=== PATIENT | male | born 1950 | race Caucasian/White ===

== ENCOUNTER 2018-10-09 10:23 | Emergency (ER) | payer OTHER ==
[~2018-10-09] VITALS: Ht 182.9 cm; Wt 83.9 kg
[2018-10-09] MEDS ORDERED: HYDROCODONE/APAP 7.5MG-325MG 1 EA TAB PO PRN (10:30)
[2018-10-09] MEDS ORDERED: LIDOCAINE 1% W/EPINEPHRINE 20 ML VIAL INJ ONE (10:30)
[2018-10-09 10:59] LABS: BASOPHILS # (AUTO) 0.1 (0.0-0.1); BASOPHILS % 0.4 % (0.0-1.0); EOSINOPHILS # (AUTO) 0.2 (0.0-0.4); EOSINOPHILS % 1.7 % (0.0-6.0); HEMATOCRIT 26.5 % (38.2-49.6); HEMOGLOBIN 8.4 g/dL (14.0-18.0); LYMPHOCYTES # (AUTO) 1.1 (1.0-3.2); LYMPHOCYTES % 8.8 % (18.0-39.1); MEAN CORPUSCULAR HEMOGLOBIN 28.5 pg (28-32); MEAN CORPUSCULAR HGB CONC 31.7 g/dL (31-35); MEAN CORPUSCULAR VOLUME 89.8 fL (81-99); MONOCYTES % 8.3 % (4.4-11.3); NEUTROPHILS # (AUTO) 9.9 (2.1-6.9); NEUTROPHILS % 80.2 % (38.7-80.0); PLATELET COUNT 539 x10e3/uL (140-360); RED BLOOD COUNT 2.95 x10e6/uL (4.3-5.7); RED CELL DISTRIBUTION WIDTH 13.3 % (11.7-14.4)
[2018-10-09 11:19] LABS: ALBUMIN 3.4 g/dL (3.5-5.0); ALBUMIN/GLOBULIN RATIO 0.8 (0.8-2.0); ANION GAP 16.6 mmol/L (8-16); CALCIUM 10.2 mg/dL (8.4-10.2); CREATININE, SERUM 1.84 mg/dL (0.72-1.25); POTASSIUM 4.6 mmol/L (3.5-5.1)
[2018-10-09] MEDS ORDERED: SODIUM CHLORIDE 0.9% 500ML 500 ML IV ONE (11:45)
[2018-10-09] MEDS ORDERED: ONDANSETRON HCL INJ 2MG/ML 2ML 2 MG/ML VIAL IV STA (12:23)
[2018-10-09] MEDS ORDERED: MORPHINE SULFATE INJ 4 MG/ML INJ 1ML IV PRN (12:30)
--- NOTE | 2018-10-09 13:57 | Diagnostic Imaging Report ---
EXAMINATION: CT of the neck with contrast HISTORY: Left jaw pain, abscess, history of cancer COMPARISON: None TECHNIQUE: Multidetector helical axial images were obtained from the sternal notch through the skull base during intravenous infusion of iodinated contrast material. Images were reconstructed using soft tissue and bone algorithms and were viewed in multiplanar format. Intravenous contrast: 100 mL of Isovue-370. Dose modulation, iterative reconstruction, and/or weight based adjustment of the mA/kV was utilized to reduce the radiation dose to as low as reasonably achievable. FINDINGS: Mass: Approximately 1.2 x 2.3 x 1.8 cm (L x AP x T) peripherally enhancing masslike fluid collection in the left para median submental region, underneath the level of the symphysis and left parasymphyseal region ( this may represent an abscess or an infected mass, comparison to prior studies if available is advised), without definite underlying osseous or overlying skin abnormalities, mild associated swelling of the overlying soft tissues which may be related to cellulitis. Nodes: No discrete enlarged cervical lymphadenopathy Sinuses: Imaged portions unremarkable. Oral cavity: No mass. Edentulous patient. Salivary glands: Prominent atrophy of the parotid and submandibular glands, likely from prior cancer treatment as there is also diffuse reticulation of the subcutaneous fat along the anterior neck. Surgical clips along the left lateral neck from possible prior dissection. Pharynx: Mild diffuse swelling of the lining mucosa, likely posttreatment change. Larynx: Unremarkable. Thyroid gland: Unremarkable. Upper esophagus: No abnormalities Blood vessels: Atherosclerotic changes throughout the bilateral common carotids, carotid bifurcations, carotid bulbs and cervical ICAs as well as partially visualized intracranial ICAs. Bones: -Prominent irregularity and fragmentation of the right body/ramus of the mandible which may be related to radiation-induced necrosis or osteomyelitis, no discrete associated mass or fluid collection is seen at this time. -Prominent degenerative changes of the atlantoaxial joint. Moderate foraminal stenosis mainly on the right at C2-C3, moderately severe bilaterally at C3-C4, C4-C5, C5-C6 and C6-7 due to spondylolisthesis and uncovertebral arthrosis. IMPRESSION: 1. Ill-defined peripheral enhancing masslike fluid collection in the left central submental region, likely an abscess as above. Comparison to prior studies is recommended. 2. 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 3. No enlarged cervical lymphadenopathy. 4. Posttreatment changes throughout the soft tissues of the neck. Signed by: Dr. Gertrudis Rioc M.D. on 10/09/2018 1:54 PM
[2018-10-09] MEDS ORDERED: MORPHINE SULFATE INJ 4 MG/ML INJ 1ML IV STA (14:33)
[2018-10-09] MEDS ORDERED: CLINDAMYCIN PHOS 900MG/ 50ML 50 ML IV ONE (14:45)
[2018-10-09 15:26] VITALS: BP 151/78
[2018-10-09] MEDS ORDERED: IOPAMIDOL 370 MG/ML 200 ML INFUS..BTL INJ ONE (18:56)
[2018-10-09] MEDS ORDERED: SODIUM CHLORIDE 0.9% 50ML 50 ML ONE (18:56)
== END 2018-10-09 15:34 | disposition home or self-care (01) ==
LOC: ER 10:23
DX: R68.84 Jaw pain (principal); K04.7 Periapical abscess without sinus; I10 Essential (primary) hypertension
CPT/HCPCS: 36415; 41800; 70491; 80053; 85025; 99284; J2270; J2405; J7040; Q9967

== ENCOUNTER 2019-04-07 07:42 | Emergency (ER) | payer OTHER ==
[~2019-04-07] VITALS: Ht 182.9 cm; Wt 83.9 kg
--- OUTSIDE RECORDS SUMMARY | 2019-04-07 07:46 | XMS REPORT ---
Author Author [facility] Address Unknown Phone Unavailable Care Team Providers Care Information Security Architect Name Role Phone ANETAAMY Raven SHAYY Unavailable Unavailable Problems This patient has no known problems. Allergies, Adverse Reactions, Alerts This patient has no known allergies or adverse reactions. Medications This patient has no known medications. Results Test Description Test Time Test Comments Text Results Atomic Results Result Comments CT SOFT TISSUE NECK W 2018-10-09 13:40:00 [place] [address] Patient Name: JUANA RODRIGUEZ MR #: [id number] : 1950 Age/Sex: 67/M Req #: [id number] Adm Physician: Ordered by: MATTIE PEARSON TERRA COTTA MASON Report #: [id number] Location: ER Room/Bed: Procedure: [id number] CT/CT SOFT TISSUE NECK W Exam Date: 10/09/18 Exam Time: 1300 REPORT STATUS: Signed EXAMINATION: CT of the neck with contrast HISTORY: Left jaw pain, abscess, history of cancer COMPARISON: None TECHNIQUE: Multidetector helical axial images were obtained from the sternal notch through the skull base during intravenous infusion of iodinated contrast material. Images were reconstructed using soft tissue and bone algorithms and were viewed in multiplanar format. Intravenous contrast: 100 mL of Isovue- 370. Dose modulation, iterative reconstruction, and/or weight based adjustment of the mA/kV was utilized to reduce the radiation dose to as low as reasonably achievable. FINDINGS: Mass: Approximately 1.2 x 2.3 x 1.8 cm (L x AP x T) peripherally enhancing masslike fluid collection in the left para median submental region, underneath the level of the symphysis and left parasymphyseal region ( this may represent an abscess or an infected mass, comparison to prior studies if available is advised), without definite underlying osseous or overlying skin abnormalities, mild associated swelling of the overlying soft tissues which may be related to cellulitis. Nodes: No discrete enlarged cervical lymphadenopathy Sinuses: Imaged portions unremarkable. Oral cavity: No mass. Edentulous patient. Salivary glands: Prominent atrophy of the parotid and submandibular glands, likely from prior cancer treatment as there is also diffuse reticulation of the subcutaneous fat along the anterior neck. Surgical clips along the left lateral neck from possible prior dissection. Pharynx: Mild diffuse swelling of the lining mucosa, likely posttreatment change. Larynx: Unremarkable. Thyroid gland: Unremarkable. Upper esophagus: No abnormalities Blood vessels: Atherosclerotic changes throughout the bilateral common carotids, carotid bifurcations, carotid bulbs and cervical ICAs as well as partially visualized intracranial ICAs. Bones: -Prominent irregularity and fragmentation of the right body/ramus of the mandible which may be related to radiation-induced necrosis or osteomyelitis, no discrete associated mass or fluid collection is seen at this time. -Prominent degenerative changes of the atlantoaxial joint. Moderate foraminal stenosis mainly on the right at C2-C3, moderately severe bilaterally at C3-C4, C4-C5, C5-C6 and C6-7 due to spondylolisthesis and uncovertebral arthrosis. IMPRESSION: 1. Ill-defined peripheral enhancing masslike fluid collection in the left central submental region, likely an abscess as above. Comparison to prior studies is recommended. 2. 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 3. No enlarged cervical lymphadenopathy. 4. Posttreatment changes throughout the soft tissues of the neck. Signed by: Dr. Gertrudis Rico M.D. on 10/09/2018 1:54 PM Dictated By: GERTRUDIS RICO MD [id number] Transcribed By: KAREEM on 10/09/18 [id number] COPY TO: MATTIE PEARSON NP
[2019-04-07 08:10] LABS: BASOPHILS # (AUTO) 0.1 (0.0-0.1); BASOPHILS % 0.9 % (0.0-1.0); EOSINOPHILS # (AUTO) 0.3 (0.0-0.4); EOSINOPHILS % 3.1 % (0.0-6.0); HEMATOCRIT 28.2 % (38.2-49.6); HEMOGLOBIN 8.9 g/dL (14.0-18.0); LYMPHOCYTES # (AUTO) 0.9 (1.0-3.2); LYMPHOCYTES % 10.7 % (18.0-39.1); MEAN CORPUSCULAR HEMOGLOBIN 28.9 pg (28-32); MEAN CORPUSCULAR HGB CONC 31.6 g/dL (31-35); MEAN CORPUSCULAR VOLUME 91.6 fL (81-99); MONOCYTES # (AUTO) 0.7 (0.2-0.8); MONOCYTES % 7.6 % (4.4-11.3); NEUTROPHILS # (AUTO) 6.8 (2.1-6.9); NEUTROPHILS % 77.1 % (38.7-80.0); PLATELET COUNT 314 x10e3/uL (140-360); RED BLOOD COUNT 3.08 x10e6/uL (4.3-5.7); RED CELL DISTRIBUTION WIDTH 13.6 % (11.7-14.4)
[2019-04-07 08:27] LABS: ALBUMIN 3.3 g/dL (3.5-5.0); ALBUMIN/GLOBULIN RATIO 0.9 (0.8-2.0); CALCIUM 9.5 mg/dL (8.4-10.2); CREATININE, SERUM 1.43 mg/dL (0.72-1.25)
[2019-04-07] MEDS ORDERED: SODIUM CHLORIDE 0.9% 1000ML 1,000 ML IV ONE (08:45)
[2019-04-07 12:12] VITALS: BP 165/60
--- NOTE | 2019-04-07 12:39 | Diagnostic Imaging Report ---
CT SOFT TISSUE NECK W, CT MAX FAC/PARANASAL W HISTORY: Right cheek pain, face swelling; history of throat cancer COMPARISON: Neck CT 10/09/2018 TECHNIQUE: Axial CT images were obtained through the neck and face with intravenous, iodine based contrast. Coronal and sagittal reconstructions obtained from the axial data. One or more of the following dose reduction techniques were used: Automated exposure control, adjustment of the mA and/or kV according to patient size, and/or utilization of iterative reconstruction technique. DISCUSSION: Fragmentation and erosion of the right mandible has not significantly changed. There are persistent phlegmonous changes throughout the lower right ambulance paramedic space without discrete drainable fluid collection. A small focus of air in the right ambulance paramedic space is more conspicuous. Subcentimeter peripherally enhancing right parotid lymph node may be reactive. Focal mucosal prominence along the right palatine tonsil and glossotonsillar sulcus, tracking towards the right retromolar trigone, has slightly increased. Diffuse mucosal thickening throughout the oropharynx, hypopharynx, and larynx has otherwise not significantly changed. Otherwise, the visualized upper aerodigestive tract is unremarkable. No other radiographically significant cervical adenopathy is seen. The thyroid gland is unremarkable. The bilateral submandibular and right parotid glands are atrophic. The left parotid gland is unremarkable. Prominent bilateral cervical carotid calcified plaque is present. Otherwise, the posterior cervical, and perivertebral spaces are unremarkable. There is mild generalized cerebral volume loss.) Right duffy radiata old lacunar infarct is partially visualized. Mild periventricular white matter hypodensities are likely chronic microvascular ischemic changes. Carotid siphon and left intradural vertebral artery calcifications are present. Bilateral ocular lens replacement. Otherwise, the visualized intracranial compartment and orbits are grossly unremarkable. Mild scattered paranasal sinus mucosal thickening is present There are prominent degenerative changes throughout the spine. Mild scarring and emphysematous changes are seen in the lung apices. IMPRESSION: 1. Persistent fragmentation/erosion of the right mandible with lower right ambulance paramedic space phlegmonous changes. No discrete drainable fluid collection. 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 2. Slightly increased focal mucosal prominence along the right palatine tonsil and glossotonsillar sulcus, tracking towards the right retromolar trigone. This can be correlated with direct visualization/physical examination. 3. Otherwise, unchanged diffuse mucosal thickening throughout the oropharynx, hypopharynx, and larynx may be due to posttreatment change. 4. Subcentimeter peripherally enhancing right parotid lymph nodes may be reactive. 5. No other radiographically significant cervical adenopathy. Signed by: Dr. Ameya Fernandez M.D. on 04/07/2019 12:35 PM
--- NOTE | 2019-04-07 12:39 | Diagnostic Imaging Report ---
CT SOFT TISSUE NECK W, CT MAX FAC/PARANASAL W HISTORY: Right cheek pain, face swelling; history of throat cancer COMPARISON: Neck CT 10/09/2018 TECHNIQUE: Axial CT images were obtained through the neck and face with intravenous, iodine based contrast. Coronal and sagittal reconstructions obtained from the axial data. One or more of the following dose reduction techniques were used: Automated exposure control, adjustment of the mA and/or kV according to patient size, and/or utilization of iterative reconstruction technique. DISCUSSION: Fragmentation and erosion of the right mandible has not significantly changed. There are persistent phlegmonous changes throughout the lower right diesel dinkey engineer space without discrete drainable fluid collection. A small focus of air in the right diesel dinkey engineer space is more conspicuous. Subcentimeter peripherally enhancing right parotid lymph node may be reactive. Focal mucosal prominence along the right palatine tonsil and glossotonsillar sulcus, tracking towards the right retromolar trigone, has slightly increased. Diffuse mucosal thickening throughout the oropharynx, hypopharynx, and larynx has otherwise not significantly changed. Otherwise, the visualized upper aerodigestive tract is unremarkable. No other radiographically significant cervical adenopathy is seen. The thyroid gland is unremarkable. The bilateral submandibular and right parotid glands are atrophic. The left parotid gland is unremarkable. Prominent bilateral cervical carotid calcified plaque is present. Otherwise, the posterior cervical, and perivertebral spaces are unremarkable. There is mild generalized cerebral volume loss.) Right duffy radiata old lacunar infarct is partially visualized. Mild periventricular white matter hypodensities are likely chronic microvascular ischemic changes. Carotid siphon and left intradural vertebral artery calcifications are present. Bilateral ocular lens replacement. Otherwise, the visualized intracranial compartment and orbits are grossly unremarkable. Mild scattered paranasal sinus mucosal thickening is present There are prominent degenerative changes throughout the spine. Mild scarring and emphysematous changes are seen in the lung apices. IMPRESSION: 1. Persistent fragmentation/erosion of the right mandible with lower right diesel dinkey engineer space phlegmonous changes. No discrete drainable fluid collection. 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 2. Slightly increased focal mucosal prominence along the right palatine tonsil and glossotonsillar sulcus, tracking towards the right retromolar trigone. This can be correlated with direct visualization/physical examination. 3. Otherwise, unchanged diffuse mucosal thickening throughout the oropharynx, hypopharynx, and larynx may be due to posttreatment change. 4. Subcentimeter peripherally enhancing right parotid lymph nodes may be reactive. 5. No other radiographically significant cervical adenopathy. Signed by: Dr. Ameya Fernandez M.D. on 04/07/2019 12:35 PM
[2019-04-07] MEDS ORDERED: AUGMENTIN 875-1 EACH PO (12:42)
[2019-04-07] MEDS ORDERED: SODIUM CHLORIDE 0.9% 50ML 50 ML ONE (13:56)
[2019-04-07] MEDS ORDERED: IOPAMIDOL 370 MG/ML 200 ML INFUS..BTL INJ ONE (13:56)
== END 2019-04-07 12:49 | disposition home or self-care (01) ==
LOC: ER 07:51
DX: R51 Headache (principal); Z85.818 Personal history of malignant neoplasm of other sites of lip, oral cavity, and pharynx
CPT/HCPCS: 36415; 70487; 70491; 80053; 85025; 99284; J7030; Q9967